=== PATIENT | male | born 1990 | race Hispanic/Latino ===

== ENCOUNTER 2016-09-07 07:57 | Emergency (ER) | payer OTHER ==
[2016-09-07 08:04] VITALS: BMI 23.6
[2016-09-07 08:05] VITALS: RESP 16; TEMP 98.7
[2016-09-07] MEDS ORDERED: Sodium Chloride 0.9% 1,000 ML IV STA (08:24)
[2016-09-07 08:31] LABS: ADD MANUAL DIFF? NO
[2016-09-07 08:36] LABS: BASO # 0.02 K/mm3 (0.0-2.0); BASO % 0.2 % (0.0-3.0); EOS # 0.1 (0.0-0.7); EOS % 1.2 % (1.5-5.0); GRAN # 7.34 (1.4-6.5); GRAN % 83.4 % (50.0-68.0); LYMPH # 0.8 (1.2-3.4); LYMPH % 8.7 % (22.0-35.0); MEAN CELL VOLUME 88.5 fL (80.0-105.0); MEAN CORPUSCULAR HEMOGLOBIN 32.2 pg (25.0-35.0); MEAN CORPUSCULAR HGB CONC 36.4 g/dl (31.0-37.0); MEAN PLATELET VOLUME 9.1 fl (7.0-11.0); MONO # 0.6 (0.1-0.6); MONO % 6.5 % (1.0-6.0); PLATELET COUNT 233 10^3/uL (120.0-450.0); RED CELL DISTRIBUTION WIDTH 12.5 % (11.5-14.5); WHITE BLOOD COUNT 8.8 10^3/ul (4.5-11.0)
[2016-09-07 08:45] LABS: URINE BILIRUBIN NEGATIVE (NEGATIVE); URINE BLOOD NEGATIVE (NEGATIVE); URINE GLUCOSE (UA) NEGATIVE (NEGATIVE); URINE KETONE NEGATIVE (NEGATIVE); URINE LEUKOCYTE ESTERASE NEGATIVE Leu/uL (NEGATIVE); URINE PROTEIN TRACE mg/dL (<30 mg/dL); URINE UROBILINOGEN 0.2 E.U./dL (<1 E.U./dL)
[2016-09-07 08:47] LABS: URINE APPEARANCE CLEAR (CLEAR); URINE COLOR YELLOW (YELLOW)
[2016-09-07 08:49] LABS: ALB/GLOB RATIO 1.5 (1.1-1.8); ALKALINE PHOSPHATASE 69 U/L (38-133); ALT/SGPT 65 U/L (7-56); AST/SGOT 37 U/L (15-59); BILIRUBIN,TOTAL 2.9 mg/dL (0.2-1.3); BLOOD UREA NITROGEN 14 mg/dL (7-21); CALCIUM 9.4 mg/dL (8.4-10.5); CARBON DIOXIDE 29 mmol/L (21-33); CHLORIDE 100 mmol/L (98-107); GFR AFRICAN-AMERICAN > 60; GLUCOSE,RANDOM 107 mg/dL (70-110); LIPASE 81 U/L (23-300); MAGNESIUM 1.9 mg/dL (1.7-2.2); PHOSPHOROUS 3.5 mg/dL (2.5-4.5); POTASSIUM 3.8 mmol/L (3.6-5.0); SODIUM 140 mmol/L (132-148); TOTAL PROTEIN 7.9 g/dL (5.8-8.3)
--- NOTE | 2016-09-07 08:52 | ED PDOC ---
Arrival/HPI - General Chief Complaint: GI Problem Time Seen by Provider: 09/07/16 08:09 Historian: Patient - History of Present Illness Narrative History of Present Illness (Text): 09/07/16 08:46 Patient is a 25 y/o M presenting with vomiting and diarrhea. He reports that overnight he developed multiple episodes of vomiting and diarrhea. He denies abdominal pain. He denies dysuria, penile discharge or scrotal pain. He denies hx of abdominal surgeries. Patient denies any recent history of antibiotic use. Time/Duration: Other (last night) Symptom Onset: Sudden Symptom Course: Unchanged Activities at Onset: Rest Past Medical History - Provider Review Nursing Documentation Reviewed: Yes - Psychiatric Hx Substance Use: No Family/Social History - Physician Review Nursing Documentation Reviewed: Yes Family/Social History: No Known Family HX Smoking Status: Never Smoked Hx Alcohol Use: No Hx Substance Use: No Allergies/Home Meds Allergies/Adverse Reactions: Allergies Penicillins Allergy (Verified 09/07/16 08:06) ANAPHYLAXIS Home Medications: Home Meds Medication Instructions Recorded Confirmed No Known Home Med 09/07/16 09/07/16 Review of Systems - Review of Systems Constitutional: absent: Fevers, Night Sweats Respiratory: absent: SOB, Sputum, Wheezing Cardiovascular: absent: Chest Pain, Edema, Calf Pain, LUNA, Orthopnea, Syncope Gastrointestinal: Diarrhea, Nausea, Vomiting. absent: Abdominal Pain, Constipation Genitourinary Male: Other (no penile discharge. no scrotal swelling.). absent: Dysuria, Frequency, Hematuria, Urinary Output Changes Musculoskeletal: absent: Back Pain Skin: absent: Rash Neurological: absent: Headache, Dizziness, Focal Weakness Physical Exam Vital Signs Reviewed: Yes Vital Signs Temp Pulse Resp BP Pulse Ox 09/07/16 10:15 85 16 108/57 L 98 09/07/16 08:04 98.7 F 87 16 92/66 L 97 Temperature: Afebrile Blood Pressure: Normal Pulse: Regular Respiratory Rate: Normal Appearance: Positive for: Well-Appearing, Non-Toxic, Comfortable Pain Distress: None Mental Status: Positive for: Alert and Oriented X 3 - Systems Exam Head: Present: Atraumatic, Normocephalic Pupils: Present: PERRL Mouth: Present: Moist Mucous Membranes Neck: Present: Normal Range of Motion Respiratory/Chest: Present: Clear to Auscultation, Good Air Exchange, Respiratory Distress Cardiovascular: Present: Regular Rate and Rhythm, Normal S1, S2. No: Murmurs Abdomen: No: Tenderness, Distention, Rebound, Guarding Back: Present: Normal Inspection Upper Extremity: Present: Normal Inspection Lower Extremity: Present: Normal Inspection Neurological: Present: GCS=15, CN II-XII Intact, Gait Normal Psychiatric: Present: Alert, Oriented x 3 Medical Decision Making ED Course and Treatment: 09/07/16 08:54 Impression: A 25 year old male with vomiting and diarrhea that started last night. No abdominal pain. He is well appearing with normal physical exam. Refusing anti-emetic. Tolerating po in ED. Will get labs, give IVF and reeval Plan: US abdomen Urinalysis labs IV fluids, Zofran Labs show elevated ALT and elevated total bilirubin. CBC WNL. UA negative. U/ s ordered. US abdomen Creator : Girma Brown MD 09/07/2016 10:08 FINDINGS: LIVER: Liver measures approximately 16.6 cm in CC dimension. . Liver demonstrates smooth contour and normal echotexture. . No mass. No intrahepatic bile duct dilatation. Liver demonstrates hepatopetal flow. GALLBLADDER: Gallbladder is physiologically distended. No evidence of intraluminal gallbladder calculi. No evidence of pericholecystic fluid collections or sonographic Berrios sign. COMMON BILE DUCT: Measures 5.3 rush mm. No stones. No dilatation. PANCREAS: Unremarkable as visualized. No mass. No ductal dilatation. RIGHT KIDNEY: Measures approximately 12.0 x 4.2 x 6.0cm. Normal echogenicity. No calculus, mass, or hydronephrosis. LEFT KIDNEY: Measures approximately 11.8 x 5.7 x 5.8cm. Normal echogenicity. No calculus, mass, or hydronephrosis. SPLEEN: Normal in size and contour. No mass. AORTA: No aneurysmal dilatation. IVC: Unremarkable. IMPRESSION: No acute intra abdominal pathology. 09/07/16 10:37 Patient is tolerating po. He was instructed to follow-up for abnormal liver function tests - Lab Interpretations Lab Results: 09/07/16 08:19 09/07/16 08:19 Lab Results 09/07/16 08:19: Sodium 140, Potassium 3.8, Chloride 100, Carbon Dioxide 29, Anion Gap 15, BUN 14, Creatinine 0.9, Est GFR ( Amer) > 60, Est GFR (Non- Af Amer) > 60, Random Glucose 107, Calcium 9.4, Phosphorus 3.5, Magnesium 1.9, Total Bilirubin 2.9 H, AST 37, ALT 65 H, Alkaline Phosphatase 69, Total Protein 7.9, Albumin 4.8, Globulin 3.1, Albumin/Globulin Ratio 1.5, Lipase 81 09/07/16 08:19: Urine Color Yellow, Urine Appearance Clear, Urine pH 6.0, Ur Specific [place] 1.025, Urine Protein Trace H, Urine Glucose (UA) Negative, Urine Ketones Negative, Urine Blood Negative, Urine Nitrate Negative, Urine Bilirubin Negative, Urine Urobilinogen 0.2, Ur Leukocyte Esterase Negative, Urine RBC 0 - 2, Urine WBC 0 - 2, Urine Bacteria Few 09/07/16 08:19: WBC 8.8, RBC 5.31, Hgb 17.1, Hct 47.0, MCV 88.5, MCH 32.2, MCHC 36.4, RDW 12.5, Plt Count 233, MPV 9.1, Gran % 83.4 H, Lymph % (Auto) 8.7 L, [place] % (Auto) 6.5 H, Eos % (Auto) 1.2 L, Baso % (Auto) 0.2, Gran # 7.34 H, Lymph # 0.8 L, [place] # 0.6, Eos # 0.1, Baso # 0.02 I have reviewed the lab results: Yes - RAD Interpretation Radiology Orders: 09/07/16 08:56 ABDOMEN COMPLETE [US] Stat - Medication Orders Current Medication Orders: Discontinued Medications Sodium Chloride (Sodium Chloride 0.9%) 1,000 mls @ 999 mls/hr IV .Q1H1M STA Stop: 09/07/16 09:24 Last Admin: 09/07/16 09:11 Dose: 999 mls/hr Ondansetron HCl (Zofran Inj) 4 mg IVP STAT STA Stop: 09/07/16 08:25 Last Admin: 09/07/16 09:12 Dose: Not Given Non-Admin Reason: Patient Refused - Scribe Statement The provider has reviewed the documentation as recorded by the Scribe Irving Moulton All medical record entries made by the Scribe were at my direction and personally dictated by me. I have reviewed the chart and agree that the record accurately reflects my personal performance of the history, physical exam, medical decision making, and the department course for this patient. I have also personally directed, reviewed, and agree with the discharge instructions and disposition. Disposition/Present on Arrival - Present on Arrival Any Indicators Present on Arrival: No History of DVT/PE: No History of Uncontrolled Diabetes: No Urinary Catheter: No History of Decub. Ulcer: No History Surgical Site Infection Following: None - Disposition Have Diagnosis and Disposition been Completed?: Yes Diagnosis: Total bilirubin, elevated, Vomiting, Diarrhea Disposition: HOME/ ROUTINE Disposition Time: 10:38 Patient Plan: Discharge Patient Problems: Current Active Problems Problem Status Onset Total bilirubin, elevated Acute Vomiting Acute Diarrhea Acute Condition: GOOD Discharge Instructions (ExitCare): Gastroenteritis (ED) Additional Instructions: Follow up with PMD to ensure resolution of elevated total bilirubin and AST. Your abdominal ultrasound in ED was normal. Return to ED if condition worsens. Advance bland diet slowly [facility] - Follow up with primary
[2016-09-07 09:15] LABS: URINE BACTERIA FEW (NEG); URINE RBC 0 - 2 /hpf (0-2); URINE WBC 0 - 2 /hpf (0-6)
--- NOTE | 2016-09-07 10:06 | US ---
HISTORY: RUQ, vomiting, elevated bilirubin COMPARISON: None. TECHNIQUE: Sonographic evaluation of the abdomen. FINDINGS: LIVER: Liver measures approximately 16.6 cm in CC dimension. . Liver demonstrates smooth contour and normal echotexture. . No mass. No intrahepatic bile duct dilatation. Liver demonstrates hepatopetal flow. GALLBLADDER: Gallbladder is physiologically distended. No evidence of intraluminal gallbladder calculi. No evidence of pericholecystic fluid collections or sonographic Berrios sign. COMMON BILE DUCT: Measures 5.3 rush mm. No stones. No dilatation. PANCREAS: Unremarkable as visualized. No mass. No ductal dilatation. RIGHT KIDNEY: Measures approximately 12.0 x 4.2 x 6.0cm. Normal echogenicity. No calculus, mass, or hydronephrosis. LEFT KIDNEY: Measures approximately 11.8 x 5.7 x 5.8cm. Normal echogenicity. No calculus, mass, or hydronephrosis. SPLEEN: Normal in size and contour. No mass. AORTA: No aneurysmal dilatation. IVC: Unremarkable. OTHER FINDINGS: None. IMPRESSION: No acute intra abdominal pathology.
[2016-09-07 10:16] VITALS: BP 108/57; PULSE 85; O2SAT 98
== END 2016-09-07 10:49 | disposition home or self-care (01) ==
LOC: ED 07:57
DX: E80.7 Disorder of bilirubin metabolism, unspecified (principal); R11.10 Vomiting, unspecified; R19.7 Diarrhea, unspecified
CPT/HCPCS: 76700; 80053; 81001; 83690; 83735; 84100; 85025; 96360; 99284; J7040